=== PATIENT | female | born 1975 | race Hispanic/Latino ===

== ENCOUNTER 2016-11-10 00:29 | Emergency (ER) | payer MEDICARE, OTHER ==
[2016-11-10 00:40] VITALS: BP 149/88; PULSE 89; RESP 18; TEMP 98.1; O2SAT 100
--- NOTE | 2016-11-10 01:04 | ED PDOC ---
HPI: General Adult Time Seen by Provider: 11/10/16 00:46 Chief Complaint (Nursing): Headache Chief Complaint (Provider): migraine History Per: Patient Additional Complaint(s): 41-year-old female with no past medical history presents to emergency Department with headache that started earlier today. Patient rates headache as a 5 out of 10. She did not take any medicine for the headache. Patient states this is not the worst headache of her life. She is requesting a dose of Tylenol. Patient states tomorrow she is having to a jail in [facility]. She denies any vision changes, dizziness, chest pain, shortness of breath or dyspnea on exertion. Past Medical History Reviewed: Historical Data, Nursing Documentation, Vital Signs Vital Signs: Last Vital Signs Temp 98.1 F 11/10/16 00:38 Pulse 89 11/10/16 00:38 Resp 18 11/10/16 00:38 BP 149/88 11/10/16 00:38 Pulse Ox 100 11/10/16 01:44 - Medical History PMH: Anxiety - Surgical History Surgical History: Back Surgery - Family History Family History: States: No Known Family Hx - Living Arrangements Living Arrangements: Other (non domiciled) - Social History Current smoker - smoking cessation education provided: No Alcohol: None Drugs: Denies - Allergies Allergies/Adverse Reactions: Allergies Allergy/AdvReac Type Severity Reaction Status Date / Time No Known Allergies Allergy Verified 11/10/16 00:38 Review of Systems ROS Statement: Except As Marked, All Systems Reviewed And Found Negative Constitutional: Negative for: Fever Eyes: Negative for: Vision Change Cardiovascular: Negative for: Chest Pain, Palpitations Respiratory: Negative for: Cough, Shortness of Breath Gastrointestinal: Negative for: Nausea, Vomiting Neurological: Positive for: Headache (mild). Negative for: Weakness, Numbness, Incoordination, Change in Speech, Confusion, Seizures, Altered Mental Status, Dizziness Physical Exam - Reviewed Nursing Documentation Reviewed: Yes Vital Signs Reviewed: Yes - Physical Exam Appears: Positive for: Well, Non-toxic, No Acute Distress Head Exam: Positive for: ATRAUMATIC, NORMAL INSPECTION Skin: Positive for: Normal Color. Negative for: Rash Eye Exam: Positive for: Normal appearance, EOMI, PERRL ENT: Positive for: Normal ENT Inspection Neck: Positive for: Painless ROM Cardiovascular/Chest: Positive for: Regular Rate, Rhythm Respiratory: Positive for: Normal Breath Sounds Neurologic/Psych: Positive for: Alert, Oriented, Gait (steady). Negative for: Motor/Sensory Deficits, Aphasia, Facial Droop - Laboratory Results Urine POC: Negative - ECG O2 Sat by Pulse Oximetry: 100 Pulse Ox Interpretation: Normal Medical Decision Making Medical Decision Makin41 year old non-domiciled female with mild headache. Upon entry to room, patient noted to be sleeping with lights off. Patient is asking for tylenol. Accucheck: 111 Patient given PO tylenol, states headache resolved with tylenol. Patient was referred to clinic for follow up. Disposition - Clinical Impression Clinical Impression: Headache - Patient ED Disposition Is Patient to be Admitted: No Counseled Patient/Family Regarding: Diagnosis, Need For Followup - Disposition [facility] Disposition: Routine/Home Disposition Time: 02:20 Condition: STABLE Additional Instructions: Take [id number] Tylenol for headache as needed. Follow-up with clinic for any persistent symptoms. Instructions: General Headache (ED)
== END 2016-11-10 02:58 | disposition home or self-care (01) ==
LOC: H.ER 00:29
DX: R51 Headache (principal)

== ENCOUNTER 2016-11-11 04:10 | Emergency (ER) | payer MEDICARE, OTHER ==
[2016-11-11 04:22] VITALS: BP 131/87; PULSE 78; RESP 18; TEMP 97.6; O2SAT 100
[2016-11-11 04:43] LABS: BASO # 0.1 K/uL (0.0-0.2); BASO % 0.9 % (0.0-2.0); EOS # 0.1 K/uL (0.0-0.7); EOS % 1.3 % (0.0-4.0); HEMATOCRIT 40.4 % (34.0-47.0); LYMPH # 2.7 K/uL (1.0-4.3); LYMPH % 41.6 % (20.0-40.0); MEAN CELL VOLUME 92.5 fl (81.0-99.0); MEAN CORPUSCULAR HEMOGLOBIN 30.1 pg (27.0-31.0); MEAN CORPUSCULAR HGB CONC 32.5 g/dL (33.0-37.0); MEAN PLATELET VOLUME 9.1 fl (7.2-11.7); MONO # 0.7 K/uL (0.0-0.8); MONO % 10.3 % (0.0-10.0); NEUT % 45.9 % (50.0-75.0); NRBC % 0.1 % (0.0-0.0); RED CELL DISTRIBUTION WIDTH 13.6 % (11.5-14.5); WHITE BLOOD COUNT 6.5 K/uL (4.8-10.8)
--- NOTE | 2016-11-11 04:43 | ED PDOC ---
HPI: Chest Pain Time Seen by Provider: 11/11/16 04:30 Chief Complaint (Nursing): Chest Pain Chief Complaint (Provider): chest pain History Per: Patient Additional Complaint(s): Patient is a non-domiciled female who presents with chest pain that started earlier today. Patient has history of anxiety. She states that she takes fish oils and a natural supplements to maintain the anxiety, both of which were prescribed to her by her therapist. She rates chest pain as a 6 out of 10 upon arrival and denies any associated shortness of breath or radiation. Patient denies alcohol or drug use. She denies suicidal or homicidal ideation. Patient was seen last night in ED for headache. Past Medical History Reviewed: Historical Data, Nursing Documentation, Vital Signs Vital Signs: Last Vital Signs Temp 97.6 F 11/11/16 04:20 Pulse 78 11/11/16 04:20 Resp 18 11/11/16 04:20 BP 131/87 11/11/16 04:20 Pulse Ox 100 11/11/16 04:46 - Medical History PMH: Anxiety - Surgical History Surgical History: Back Surgery - Family History Family History: States: No Known Family Hx - Living Arrangements Living Arrangements: Other (non domiciled) - Social History Current smoker - smoking cessation education provided: No Alcohol: None Drugs: Denies - Allergies Allergies/Adverse Reactions: Allergies Allergy/AdvReac Type Severity Reaction Status Date / Time No Known Allergies Allergy Verified 11/10/16 00:38 KARINE Risk Score for UA/NSTEMI - KARINE Risk Score Age > 64: NO 3 or more CAD Risk Factors: NO Known CAD (Stenosis greater than 50%): NO Aspirin use in past 7 days: NO Severe Angina: NO EKG ST changes greater than 0.5mm: NO Positive Cardiac Marker: NO KARINE Score: 0 Risk %: 5% Wells Criteria for PE - Wells Criteria for Pulmonary Embolism Clinical Signs and Symptoms of DVT: No P.E is #1 Diagnosis, or Equally Likely: No Heart Rate >100: No Immobilization at least 3 days;Surgery previous 4 weeks: No Previous, objectively diagnosed PE or DVT: No Hemoptysis: No Malignancy w/treatment within 6 months, or palliative: No Total Score: 0 Review of Systems ROS Statement: Except As Marked, All Systems Reviewed And Found Negative Constitutional: Negative for: Fever Cardiovascular: Positive for: Chest Pain. Negative for: Palpitations Respiratory: Negative for: Cough, Shortness of Breath, SOB with Exertion Gastrointestinal: Negative for: Nausea, Vomiting Psych: Positive for: Anxiety. Negative for: Suicidal ideation Physical Exam - Reviewed Nursing Documentation Reviewed: Yes Vital Signs Reviewed: Yes - Physical Exam Appears: Positive for: Well Skin: Negative for: Rash Eye Exam: Positive for: Normal appearance, EOMI, PERRL Cardiovascular/Chest: Positive for: Regular Rate, Rhythm Respiratory: Positive for: Normal Breath Sounds. Negative for: Respiratory Distress Neurologic/Psych: Positive for: Alert, Oriented - Laboratory Results Result Diagrams: 11/11/16 04:39 11/11/16 04:39 - ECG Interpretation Of ECG: NSR 74 bpm, reviewed by PA and ED attending O2 Sat by Pulse Oximetry: 100 Pulse Ox Interpretation: Normal Medical Decision Making Medical Decision Makin41 year old with chest pain x 1 day EKG shows no acute finding Plan: CBC CMP Trop Patient offered crisis consult but she declined. Pain resolved in ED. Patient stable for discharge. She was referred to clinic for follow up. Disposition - Clinical Impression Clinical Impression: Anxiety, Atypical chest pain - Patient ED Disposition Is Patient to be Admitted: No Counseled Patient/Family Regarding: Studies Performed, Diagnosis, Need For Followup - Disposition [facility]errals: [facility] [Outside] Disposition: Routine/Home Disposition Time: 05:16 Condition: STABLE Additional Instructions: Follow up with primary care doctor or return any time if acutely worse. Instructions: Anxiety (ED), Noncardiac Chest Pain (ED) Results - Lab Results Lab Results: 11/11/16 04:39 WBC 6.5 RBC 4.37 Hgb 13.2 Hct 40.4 MCV 92.5 MCH 30.1 MCHC 32.5 L RDW 13.6 Plt Count 270 MPV 9.1 Neut % (Auto) 45.9 L Lymph % (Auto) 41.6 H Josephine % (Auto) 10.3 H Eos % (Auto) 1.3 Baso % (Auto) 0.9 Neut # 3.0 Lymph # 2.7 Josephine # 0.7 Eos # 0.1 Baso # 0.1 Sodium 143 Potassium 3.6 Chloride 104 Carbon Dioxide 26 Anion Gap 17 BUN 12 Creatinine 0.6 L Est GFR ( Amer) > 60 Est GFR (Non-Af Amer) > 60 Random Glucose 103 Calcium 8.7 Total Bilirubin 0.7 AST 34 ALT 30 Alkaline Phosphatase 70 Troponin I < 0.0120 Total Protein 7.9 Albumin 4.0 Globulin 4.0 H Albumin/Globulin Ratio 1.0
[2016-11-11 04:53] LABS: ALKALINE PHOSPHATASE 70 U/L (38-126); ALT/SGPT 30 U/L (9-52); AST/SGOT 34 U/L (14-36); BILIRUBIN,TOTAL 0.7 mg/dl (0.2-1.3); BLOOD UREA NITROGEN 12 mg/dl (7-17); CALCIUM 8.7 mg/dL (8.4-10.2); CARBON DIOXIDE 26 mmol/L (22-30); CHLORIDE 104 mmol/L (98-107); GFR AFRICAN-AMERICAN > 60; GLUCOSE,RANDOM 103 mg/dL (65-105); POTASSIUM 3.6 MMOL/L (3.6-5.0); SODIUM 143 mmol/l (132-148); TOTAL PROTEIN 7.9 G/DL (6.3-8.2)
== END 2016-11-11 05:28 | disposition home or self-care (01) ==
LOC: H.ER 04:10
DX: F41.9 Anxiety disorder, unspecified (principal); R51 Headache; R07.89 Other chest pain